=== PATIENT | female | born 1955 | race Caucasian/White ===

== ENCOUNTER 2016-10-05 06:54 | Day surgery (SDC) | payer BC ==
[~2016-10-05 06:54] MED LIST: FENTANYL 250 MCG/5 ML AMP IV PRN; FENTANYL 250 MCG/5 ML AMP ONE; LACTATED RINGERS 1,000 ML IV SCH; LIDOCAINE Viscous 2% 15 ML UDCUP ONE; LIDOCAINE Viscous 2% 15 ML UDCUP PO PRN; MIDAZOLAM HCL 1 MG/ML 2ML VIAL IV PRN; MIDAZOLAM HCL 5 MG/5 ML VIAL ONE
[2016-10-05 12:31] LABS: HELICOBACTER PYLORII DETECTION NEGATIVE (NEGATIVE)
--- NOTE | 2016-10-12 14:20 | SURGPATH ---
[facility] [address] [place] [id number] Patient Name: ARRON PASCAL MR#: [id number] : 1955 Gender: F Specimen #: [id number] Collected: 10/05/2016 Received: 10/06/2016 Reported: 10/09/2016 Submitting Phys: YOGI LEIVA Copy To Phys: [facility] JUAN ALBERTO AVILA Clinical History / Pre-Operative Diagnosis: EARLY SATIETY; DYSPHAGIA; RULE OUT GASTRITIS Specimen Source / Surgical Procedure Performed: ANTRAL BIOPSY Interpretation: GASTRIC ANTRUM, BIOPSY: - GASTRIC MUCOSA SHOWING NO DIAGNOSTIC ABNORMALITIES. - NO MICROORGANISMS IDENTIFIED WITH ROUTINE STAINING. - NO EVIDENCE OF SIGNIFICANT INFLAMMATION, INTESTINAL METAPLASIA, OR MALIGNANCY. Electronically Signed Out Zane Jones M.D., Ph.D. Gross Description: The specimen is received in a formalin filled container labeled with the patient's name and "antral biopsy". Two lyon biopsies are 0.4 and 0.5 cm. Totally embedded in one cassette. Timothy Blackburn PKurtA. Microscopic Description: Examination of multiple levels from the gastric antrum biopsy shows two fragments of histologically unremarkable gastric mucosa. The lamina propria is not expanded. No microorganisms are seen with routine staining. There is no evidence of significant inflammation, intestinal metaplasia, or malignancy. 1: [id number] [id number]
== END 2016-10-05 09:05 | disposition home or self-care (01) ==
LOC: SDC 06:54
PROVIDERS: ATTEND Internal Medicine Gastroenterology
DX: Q39.4 Esophageal web (principal); K29.70 Gastritis, unspecified, without bleeding; K29.80 Duodenitis without bleeding
CPT/HCPCS: 87081; 43239; 43249; J3010; J2250; A9270